=== PATIENT | female | born 1980 | race Caucasian/White ===

== ENCOUNTER → 2024-06-19 | Outpatient (CLI) | payer MEDICAID | END | disposition home or self-care (01) | LOC: MRI 15:48 | PROVIDERS: ATTEND Physician Assistant Medical | DX: Z15.89 Genetic susceptibility to other disease (principal); D25.9 Leiomyoma of uterus, unspecified; G93.32 Myalgic encephalomyelitis/chronic fatigue syndrome; M46.1 Sacroiliitis, not elsewhere classified; N88.8 Other specified noninflammatory disorders of cervix uteri | CPT/HCPCS: 72195 ==